=== PATIENT | female | born 1970 | race Caucasian/White ===

== ENCOUNTER 2017-01-22 11:25 | Emergency (ER) | payer OTHER ==
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
[~2017-01-22 11:25] MED LIST: ANTIVERT PO; ATENOLOL PO; ATENOLOL50 MG PO; BACTRIM DS TABL1 TAB PO; COUMADIN5 MG PO; COUMADIN7.5 MG PO; CRESTOR5 MG; FERROUS SULFATE1 TAB PO; FLEXERIL PO; FLEXERIL10 MG PO; GLUCOPHAGE XR500 MG PO; HYDROCHLOROTH12.5 MG PO; IBUPROFEN800 MG PO; KEFLEX PO; KETOPROFEN PO; LIPITOR PO; LISINOPRIL PO; LISINOPRIL5 MG PO; MEDROL PO; MEDROL4 MG/DOSE- PO; MELATONIN10 M1 PO; MOBIC PO; NAPROXEN PO; PRILOSEC20 MG PO; SIMVASTATIN40 MG PO; SKELAXIN PO; TYLENOL #3 PO; ULTRAM PO; ZOCOR PO
[2017-01-22 13:14] LABS: BASOPHIL# 0.1 X10e3 (0-0.3); BASOPHIL% 0.5 % (0-2.5); DIFF IND NO; EOSINOPHIL# 0.4 X10e3 (0-0.7); EOSINOPHIL% 3.2 % (0.0-7.0); HEMATOCRIT 41.2 % (35.0-45.0); LYMPHOCYTE# 1.8 X10e3 (1.0-3.5); LYMPHOCYTE% 14.2 % (17.0-45.0); MEAN CELL VOLUME 84.7 FL (83-96); MEAN CORPUSCULAR HEMOGLOBIN 26.7 PG (28-34); MEAN CORPUSCULAR HGB CONC 31.5 g/dL (30-36); MEAN PLATELET VOLUME 8.3 FL (6.5-11.5); MONOCYTE# 0.8 X10e3 (0-1.0); NEUTROPHIL# 9.8 X10e3 (1.5-7.1); NEUTROPHIL% 76.1 % (40-75); PLATELET COUNT 283 X10e3 (140-420); RED BLOOD COUNT 4.86 X10e (3.90-5.30); RED CELL DISTRIBUTION WIDTH 15.7 % (11.0-15.5); WHITE BLOOD COUNT 12.9 X10e3 (4.0-10.5)
[2017-01-22 13:18] LABS: INR 1.3; PROTHROMBIN TIME (PATIENT) 13.9 SECONDS (9.6-11.5)
[2017-01-22 13:29] LABS: ALBUMIN SERUM 3.9 g/dL (3.5-5.0); BILIRUBIN, DIRECT 0.1 mg/dL (0.0-0.2); BILIRUBIN,INDIRECT 0.3 mg/dL (0.0-0.9); BILIRUBIN,TOTAL 0.4 mg/dL (0.2-2.0); CALCIUM SERUM 9.3 mg/dL (8.4-10.2); GLOM FILT RATE Estimated 67.1 mL/min (>60); POTASSIUM 4.4 mmol/L (3.5-5.1); PROTEIN TOTAL SERUM 6.7 g/dL (6.0-8.3)
[2017-01-22 14:14] LABS: URINE SOURCE CLEAN CATCH
[2017-01-22 14:20] LABS: URINE APPEARANCE CLEAR; URINE BILIRUBIN NEG (NEG); URINE BLOOD 3+ (NEG); URINE COLOR YELLOW; URINE GLUCOSE NEG (NEG); URINE KETONE NEG (NEG); URINE LEUKOCYTE ESTERASE NEG (NEG); URINE NITRATE NEG (NEG); URINE PROTEIN NEG (NEG); URINE SPECIFIC GRAVITY 1.009 (1.003-1.035); URINE UROBILINOGEN 0.2 MG/DL (NEG)
[2017-01-22 14:22] LABS: CULTURE INDICATED? YES; URINE BACTERIA AUWI 1+ (NEGATIVE); URINE SQUAMOUS EPITHELIAL CELL NONE SEEN /[HPF]; UWBCS1 AUWI 0-2 (0-5)
== END 2017-01-22 18:43 | disposition home or self-care (01) ==
LOC: CED 11:25
PROVIDERS: Emergency Medicine
DX: S09.90XA Unspecified injury of head, initial encounter (principal); S63.91XA Sprain of unspecified part of right wrist and hand, initial encounter; I12.9 Hypertensive chronic kidney disease with stage 1 through stage 4 chronic kidney disease, or unspecified chronic kidney disease; N18.9 Chronic kidney disease, unspecified; F17.200 Nicotine dependence, unspecified, uncomplicated; V49.00XA Driver injured in collision with unspecified motor vehicles in nontraffic accident, initial encounter; R79.1 Abnormal coagulation profile; Z88.1 Allergy status to other antibiotic agents; Z88.8 Allergy status to other drugs, medicaments and biological substances
CPT/HCPCS: 29125; 29260; 70450; 72072; 72125; 73030; 73060; 73090; 73130; 74176; 80048; 80076; 81003; 84703; 85025; 85610; 85730; 87086; 90471; 90715; 99284